=== PATIENT | female | born 1970 | race Caucasian/White ===

== ENCOUNTER 2020-04-15 21:30 | Emergency (ER) | payer OTHER ==
[~2020-04-15] VITALS: Ht 162.6 cm; Wt 90.7 kg
[2020-04-15 21:55] VITALS: BP_SYST 132
[2020-04-15] MEDS ORDERED: LIGHT MINERAL OIL 10 ML VIAL MC ONE (22:30)
[2020-04-15] MEDS ORDERED: MINERAL OIL 30 ML UDC ONE (22:32)
[2020-04-16 01:33] VITALS: BP_SYST 132
== END 2020-04-16 01:33 | disposition home or self-care (01) ==
LOC: SED 21:30
DX: T16.1XXA Foreign body in right ear, initial encounter (principal); Z88.6 Allergy status to analgesic agent; X58.XXXA Exposure to other specified factors, initial encounter; Y93.89 Activity, other specified; Y92.89 Other specified places as the place of occurrence of the external cause; Y99.8 Other external cause status
CPT/HCPCS: 99282